=== PATIENT | male | born 1995 | race Two or more races ===

== ENCOUNTER 2024-12-20 21:22 | Emergency (ER) | payer SELFPAY ==
[2024-12-20 21:23] VITALS: BMI 37.1
[2024-12-20 22:01] VITALS: BP 141/77; PULSE 87; RESP 18; TEMP 36.6; O2SAT 98
--- NOTE | 2024-12-20 22:05 | XR_ITS ---
Examination: Foot, right, 3 views Technique: AP, oblique, lateral views foot, 3 views Date and time of exam: December 20, 2024 1018 hrs. Indications: Injury to the foot today, foot pain. Findings: Soft tissue swelling about the first digit No acute fracture No dislocation Impression: No acute fracture
--- NOTE | 2024-12-20 22:16 | PD.EDRME ---
Rapid Medical Screening Exam RME Arrival date/time: 12/20/24 21:22 29 yo m present to ED for c/o of foot injury I have greeted and performed a focused initial assessment of this patient. A comprehensive ED assessment and evaluation of the patient, analysis of all test results, and completion of the medical decision making process will be conducted by additional ED providers. Chief Complaint: Ankle/Foot Injury Vital signs: Vital Signs Temperature 98 F 12/20/24 22:01 Pulse Rate 87 12/20/24 22:01 Respiratory Rate 18 12/20/24 22:01 Blood Pressure 141/77 H 12/20/24 22:01 Pulse Oximetry (%) 98 12/20/24 22:01 Oxygen Delivery Method Room Air 12/20/24 22:01
--- NOTE | 2024-12-20 22:24 | EDNOTE_ITS ---
Lower Extremity Injury RME/HPI General Chief Complaint: Ankle/Foot Injury Stated Complaint: TOE PAIN Time Seen by Provider: 12/20/24 22:23 Arrival date/time: 12/20/24 21:22 RME / HPI RME / HPI Narrative: 29-year-old male patient came in for evaluation regarding right great toe injury. Patient accidentally stabbed his toe with a concrete. Resulting into abrasion, tip of the great toe, severity moderate. Patient also complaining of pain severity moderate. Patient denies any other complaints. Tetanus vaccination is unknown. Related Data Previous Rx's ?Medication ?Instructions ?Recorded cephalexin 500 mg capsule 500 mg PO Q8H 7 days #21 cap s 12/20/24 ibuprofen 800 mg tablet 800 mg PO TID PRN pain #30 t abs 12/20/24 Allergies Allergy/AdvReac Type Severity Reaction Status Date / Time No Known Allergies Allergy Verified 12/20/24 21:25 Review of Systems Review of Systems Narrative Review of Systems: Review of system reviewed and within normal limits except mentioned in HPI ED Exam Narrative Physical exam: VITAL SIGNS: Reviewed. GENERAL APPEARANCE: Alert and interactive, follows commands, no acute distress, HEAD AND FACE: Non-traumatic. ENT: PERRL, pink conjunctivitis, eyelid no trauma, Mucous membrane moist. NECK: Supple, nontender, no nuchal rigidity. RECTAL: Deferred. GENITAL: Deferred. NEUROLOGICAL: Gross motor function intact sensory function intact, Appropriate for age. MUSCULOSKELETAL: low back nontender, full range of motion. EXTREMITIES: Right great toe tip abrasion, no subungual hematoma noted with tend erness no deformity, full range of motion. SKIN: Color pink, dry, no rash, no lacerations, no abrasions, no contusions. LYMPHATICS: Deferred. Course Quality Measures none Orders Category Date Time Status XR foot comp RT min 3V Stat Exams 12/20/24 22:05 Completed Ibuprofen Tab [Motrin Tab] Med 12/20/24 22:23 Discontinued 800 mg PO X1 ONE TET,DIP/PERT AC (Adult)-Tdap [Boostrix Adult (Tdap) Med 12/20/24 22:23 Discontinued Vacc] 0.5 ml IMI .ONCE ONE Vital Signs Vital signs: Vital Signs Temperature 98 F 12/20/24 22:01 Pulse Rate 87 12/20/24 22:01 Respiratory Rate 18 12/20/24 22:01 Blood Pressure 141/77 H 12/20/24 22:01 Pulse Oximetry (%) 98 12/20/24 22:01 Oxygen Delivery Method Room Air 12/20/24 22:01 Extremity Injury, Lower [facility] Narrative [facility] Narrative:: 29-year-old male patient came in for evaluation regarding right great toe injury. Patient accidentally stabbed his toe with a concrete. Resulting into abrasion, tip of the great toe, severity moderate. Patient also complaining of pain severity moderate. Patient denies any other complaints. Tetanus vaccination is unknown. X-ray of the great toe showed no acute fracture or dislocation noted. Dressing applied and patient was applied Ortho shoe She was given Motrin and Boostrix Patient data External records reviewed:: None Clinical information provided by:: patient Social determinants that could affect healthcare access:: none Patient has the following chronic illnesses:: None How is presenting disease/condition affected by chronic disease/condition?: no chronic disease Evaluation data The following diagnostics were reviewed and interpreted by me:: radiology exam(s) Lab and/or radiology exams considered but not ordered:: Plan Interpretation Summary: See results [facility] Medications / Prescriptions Medications or Prescriptions considered but not ordered:: None Medication administrations:: Medication Administration History Discontinued Medications Diphtheria/Tetanus/Acell Pertussis (Diphth,Pertuss(Acell),Tet Vac 0.5 Ml Syr- Adult) 0.5 ml IMi .ONCE ONE Stop: 12/20/24 22:24 Ibuprofen (Ibuprofen Tab 400 Mg Tablet) 800 mg PO X1 ONE Stop: 12/20/24 22:24 Boostrix and Motrin Consultations Consultation(s) initiated? (list below): No Diagnosis Extremity Injury, Lower Differential Diagnosis: fracture of toe and other (Abrasion great toe tip , fracture great toe tip ) Most likely diagnosis given after review of the tests above:: Abrasion return to the Admission Indicated Admission indicated?: not indicated Explain why admission is indicated or not indicated:: Stable Admission Request Was there a request for admission?: No Disposition Plan Disposition Plan: Discharge Discharge Attestation Discharge Attestation: The patient and all family members were given an opportunity to ask questions and understood the discharge instructions. Discharge instructions specifically effects, indications for sooner follow up or return to the emergency department, and the expected course of current diagnosis. Patient condition: Stable Discharge Plan Plan Patient Disposition: HOME (Self Care) Disposition Comment: Stable Prescriptions/Referrals Prescriptions/Med Rec: New ibuprofen 800 mg tablet 800 mg PO TID PRN (Reason: pain) Qty: 30 0RF cephalexin 500 mg capsule 500 mg PO Q8H 7 Days Qty: 21 0RF Problem List Clinical Impression: Abrasion of great toe Patient/Caregiver Discharge Instructions Discharge Activity: activity as tolerated Education Materials: ED Abrasions Additional Instructions: Thank you for the opportunity for serving you today. You are stable for discharged . You are advised to: Follow-up with your PCP in 1 to 2 days Return to ED for worsening of symptoms Increase oral fluids Take medication as prescribed Daily dressing with Neosporin as needed Your abrasion/laceration will heal on secondary intention Print Language: Kosovan Stand Alone Forms: Shantelle Award Info., Patient Portal Info Letter PA/DANE Supervising Physician MARINA/DANE Supervising Physician: MD Karuna
[2024-12-20] MEDS: IBUPROFEN TAB 400 MG TABLET 800 MG PO (22:50)
[2024-12-20] MEDS: DIPHTH,PERTUSS(ACELL),TET VAC 0.5 ML SYR- ADULT IMi (22:50)
== END 2024-12-20 22:59 | disposition home or self-care (01) ==
LOC: SERX 23:11
PROVIDERS: Emergency Provider Emergency Medicine
DX: S90.411A Abrasion, right great toe, initial encounter (principal); W22.8XXA Striking against or struck by other objects, initial encounter; Z23 Encounter for immunization
CPT/HCPCS: 73630; 90471; 90715; 99283; A9270